=== PATIENT | female | born 1950 | race Caucasian/White ===

== ENCOUNTER 2017-03-11 04:12 | Emergency (ER) | payer OTHER ==
[2017-03-11 05:09] LABS: Hematocrit 38 % (35-47); Hemoglobin 12.5 g/dl (12.0-16.0); Mean Corpuscular HGB Conc 33 g/dl (31-36); Mean Corpuscular Hemoglobin 31 pg (27-31); Mean Corpuscular Volume 95 fL (80-97); Mean Platelet Volume 10 um3 (7.4-10.4); Red Blood Count 4.05 10^6/ul (4.0-5.4); Red Cell Distribution Width 14 % (10.5-15); White Blood Count 9.7 10^3/ul (3.5-10.8)
[2017-03-11 05:24] LABS: Albumin 3.6 g/dL (3.2-5.2); C Reactive Protein 13.43 mg/L (< 5.00); EGFR African American 116.9 (>60); EGFR Non-African American 90.9 (>60); Globulin 2.1 g/dL (2-4); Potassium 3.8 mmol/L (3.5-5.0); Total Bilirubin 0.4 mg/dL (0.2-1.0); Total Protein 5.7 g/dL (6.4-8.9)
--- NOTE | 2017-03-11 05:31 | ED ---
Bianca Jenkins Claudia, scribed for Kaz Pimentel MD on 03/11/17 at 0427 . Skin Complaint - HPI Summary HPI Summary: 66 year old female presents to the ED with skin rash to her left arm. Pt states chronic lymphedema due to CA. SHe states she has had similar Sx in the past when she has an outbreak of lymphedema. She states that she has not had one in several years and she is unsure what brings them about. Pt notes that she was hiking yesterday and there is the possibility of her being bit by something but she believes it to be unusual. Pt states gradual onset over the last day. Pt also admits to taking 1 tab of Augmentin before arriving at the ED. Pt denies any fever, chills. Pt notes the pain intensity as 6/10. - History of Current Complaint Chief Complaint: EDRashSkinAbscess Stated Complaint: LEFT ARM INFECTION Hx Obtained From: Patient Onset/Duration: Started Days Ago, Still Present Timing: Constant Pain Intensity: 6 Pain Scale Used: 0-10 Numeric Skin Location: Arm - Allergy/Home Medications Allergies/Adverse Reactions: Allergies Allergy/AdvReac Type Severity Reaction Status Date / Time No Known Allergies Allergy Verified 03/11/17 04:22 PMH/Surg Hx/FS Hx/Imm Hx Previously Healthy: Yes Endocrine/Hematology History: Denies: Hx Diabetes Cardiovascular History: Denies: Hx Myocardial Infarction Infectious Disease History: Yes Infectious Disease History: Denies: Traveled Outside the [place] in Last 30 Days - Family History Known Family History: Positive: Hypertension - Social History Occupation: Employed Full-time Lives: Alone Alcohol Use: None Hx Substance Use: No Substance Use Type: Reports: None Hx Tobacco Use: No Smoking Status (MU): Never Smoked Tobacco Review of Systems Constitutional: Negative Negative: Fever, Chills Eyes: Negative ENT: Negative Cardiovascular: Negative Respiratory: Negative Gastrointestinal: Negative Genitourinary: Negative Musculoskeletal: Negative Positive: Rash - left arm Neurological: Negative Psychological: Normal All Other Systems Reviewed And Are Negative: Yes Physical Exam Triage Information Reviewed: Yes Vital Signs On Initial Exam: Initial Vitals Temp Pulse Resp BP Pulse Ox 97.6 F 120 20 135/62 99 03/11/17 04:20 03/11/17 04:20 03/11/17 04:20 03/11/17 04:20 03/11/17 04:20 Vital Signs Reviewed: Yes Appearance: Positive: Well-Appearing, No Pain Distress Skin: Positive: Warm, Other - lt lower arm area of warmth and erythema no fluctuance Head/Face: Positive: Normal Head/Face Inspection Eyes: Positive: ANTHONY ENT: Positive: Hearing grossly normal Neck: Positive: Supple Respiratory/Lung Sounds: Positive: Clear to Auscultation, Breath Sounds Present Cardiovascular: Positive: RRR Abdomen Description: Positive: Nontender, Soft Bowel Sounds: Positive: Present Musculoskeletal: Positive: Strength/ROM Intact Neurological: Positive: Alert, Oriented to Person Place, Time, Normal Gait Psychiatric: Positive: Affect/Mood Appropriate Diagnostics - Vital Signs Vital Signs Temp Pulse Resp BP Pulse Ox 03/11/17 04:20 97.6 F 120 20 135/62 99 - Laboratory Lab Results: Lab Results 03/11/17 03/11/17 Range/Units 04:50 04:50 WBC 9.7 (3.5-10.8) 10^3/ul RBC 4.05 (4.0-5.4) 10^6/ul Hgb 12.5 (12.0-16.0) g/dl Hct 38 (35-47) % MCV 95 (80-97) fL MCH 31 (27-31) pg MCHC 33 (31-36) g/dl RDW 14 (10.5-15) % Plt Count 218 (150-450) 10^3/ul MPV 10 (7.4-10.4) um3 Neut % (Auto) 76.1 (38-83) % Lymph % (Auto) 11.8 L (25-47) % Barren % (Auto) 8.6 (1-9) % Eos % (Auto) 2.9 (0-6) % Baso % (Auto) 0.6 (0-2) % Absolute Neuts (auto) 7.4 (1.5-7.7) 10^3/ul Absolute Lymphs (auto) 1.1 (1.0-4.8) 10^3/ul Absolute Monos (auto) 0.8 (0-0.8) 10^3/ul Absolute Eos (auto) 0.3 (0-0.6) 10^3/ul Absolute Basos (auto) 0.1 (0-0.2) 10^3/ul Absolute Nucleated RBC 0.01 10^3/ul Nucleated RBC % 0.1 Sodium 137 (133-145) mmol/L Potassium 3.8 (3.5-5.0) mmol/L Chloride 107 (101-111) mmol/L Carbon Dioxide 27 (22-32) mmol/L Anion Gap 3 (2-11) mmol/L BUN 13 (6-24) mg/dL Creatinine 0.65 (0.51-0.95) mg/dL Est GFR ( Amer) 116.9 (>60) Est GFR (Non-Af Amer) 90.9 (>60) BUN/Creatinine Ratio 20.0 (8-20) Glucose 97 (70-100) mg/dL Calcium 9.0 (8.6-10.3) mg/dL Total Bilirubin 0.40 (0.2-1.0) mg/dL AST 15 (13-39) U/L ALT 10 (7-52) U/L Alkaline Phosphatase 72 (34-104) U/L C-Reactive Protein 13.43 H (< 5.00) mg/L Total Protein 5.7 L (6.4-8.9) g/dL Albumin 3.6 (3.2-5.2) g/dL Globulin 2.1 (2-4) g/dL Albumin/Globulin Ratio 1.7 (1-3) Result Diagrams: 03/11/17 04:50 03/11/17 04:50 Lab Statement: Any lab studies that have been ordered have been reviewed, and results considered in the medical decision making process. Re-Evaluation - Re-Evaluation First Eval Comment: possible bug bite with allergic rxn, no evidence of infection, will tx with benadryl and follow up Course/Dx - Course Assessment/Plan: MDM: AFTER ROUTINE BLOOD-WORK RETURNED WITHIN NML LIMITS. THE PT WILL BE D/C HOME WITH FOLLOW-UP WITH PCP TODAY - Diagnoses Provider Diagnoses: Arm swelling Discharge - Discharge Plan Condition: Stable Disposition: HOME Patient Education Materials: Dermatitis (ED) Referrals: Non Staff,Doctor [Primary Care Provider] - [facility] [place] [facility] [Outside] Additional Instructions: PLEASE FOLLOW-UP WITH YOUR PRIMARY CARE PROVIDER TODAY. The documentation as recorded by the Bianca larkin Claudia accurately reflects the service I personally performed and the decisions made by , Kaz Pimentel MD.
[2017-03-11] MEDS ORDERED: diPHENhydraMINE PO* 25 MG PO ONE (05:55)
[2017-03-11 06:24] VITALS: BP 116/71
== END 2017-03-11 06:15 | disposition home or self-care (01) ==
LOC: ED 04:12
DX: R21 Rash and other nonspecific skin eruption (principal); I89.0 Lymphedema, not elsewhere classified; R60.0 Localized edema; C80.1 Malignant (primary) neoplasm, unspecified
CPT/HCPCS: 36415; 80053; 85025; 86140; 99282; A9270-GY